=== PATIENT | male | born 1990 | race Caucasian/White ===

== ENCOUNTER 2019-04-20 00:27 | Emergency (ER) | payer OTHER ==
[~2019-04-20] VITALS: Ht 177.8 cm; Wt 117.3 kg
[2019-04-20 00:32] VITALS: Ht 177.8 cm; Wt 117.3 kg
[2019-04-20] MEDS ORDERED: KETOROLAC 30 MG INJ IM STA (01:49)
[2019-04-20] MEDS ORDERED: IBUP-1542 PO (02:11)
[2019-04-20 02:19] VITALS: BP 135/95; PULSE 94; RESP 18
--- NOTE | 2019-04-20 04:58 | ERD ---
ER Documentation Chief Complaint Chief Complaint PATIENT BIB SELF; CO RIGHT KNEE PAIN SINCE 1100 HPI 28-year-old male presented to ED for right knee pain. Patient states his pain is coming gone over the last few months. Patient cannot recall any aggravating factors. Patient states the pain is 10 out of 10. Patient states he had ankle surgery 3 years ago and had plates put in his ankle. The patient has a slight limp and states that that is normal for him. Patient denies any allergies to medications. Patient states he has not taken anything yet to try to alleviate the pain. The patient points to his right knee and states he feels a clicking sensation from time to time and feels like his knee gets stuck. ROS All systems reviewed and are negative except as per history of present illness. Medications Home Meds Active Scripts Ibuprofen* (Motrin*) 600 Mg Tab, 600 MG PO Q6, #30 TAB Prov:SAMUEL AUGUSTE PA-C 04/20/19 Allergies Allergies: Coded Allergies: No Known Allergy (Unverified , 09/21/14) PMhx/Soc Medical and Surgical Hx: pt denies Medical Hx, pt denies Surgical Hx History of Surgery: No Anesthesia Reaction: No Hx Neurological Disorder: No Hx Respiratory Disorders: No Hx Cardiac Disorders: No Hx Psychiatric Problems: No Hx Miscellaneous Medical Probl: No Hx Alcohol Use: No Hx Substance Use: No Hx Tobacco Use: Yes Smoking Status: Current every day smoker FmHx Family History: No diabetes, No coronary disease, No other Physical Exam Vitals Vital Signs Date Temp Pulse Resp B/P (MAP) Pulse Ox O2 O2 Flow FiO2 Time Delivery Rate 04/20/19 98.3 94 18 135/95 99 02:19 (108) 04/20/19 98.0 111 20 144/92 98 00:32 (109) Physical Exam Const: Moderate distress Resp: Clear to auscultation bilaterally Cardio: Regular rate and rhythm, no murmurs Abd: Soft, non tender, non distended. Normal bowel sounds Skin: No petechiae or rashes Back: No midline or flank tenderness Ext: No cyanosis, or edema, valgus valgus provokes no pain in the right lower extremity. Patient has positive Mathieu's test. Results 24 hrs Current Medications Medications Dose Sig/Juanita Start Time Status Last (Trade) Ordered Route PRN Stop Time Admin Dose Reason Admin Ketorolac 30 mg ONCE STAT 7/17/19 DC 04/20/19 Tromethamine IM 01:49 01:55 (Toradol) 04/20/19 01:51 Procedures/MDM Medications given in ER: Cyclobenzaprine Toradol Patient tolerated medication well with no adverse reactions. Patient reported improvement in pain. Medical decision making: Patient is a 28-year-old male presented to ED for right knee pain. Patient denies any traumatic injury. Obtaining history and the patient he has had surgery on his right ankle and has multiple screws and plates placed in that foot. Patient states ever since that surgery he is walked funny and has put more pressure on his right knee. Patient's physical exam showed a kneecap that is not in the normal position no pain to palpation. At this time I have low suspicion for knee dislocation. Valgus valgus provoked no pain at this time I have low suspicion for ACL, MCL, LCL injury. Since Mathieu's test was positive and patient states that he has clicking in the knee sometimes and it catches. The patient has good pulse motor sensation in the extremity and in no neuro vascular deficits .I advised the patient he may have a meniscus injury. I advised patient he needs to follow-up with Ortho regarding this matter. At this time I have low suspicion based off my physical exam for compartment syndrome, fracture, neurovascular injury. Upon reevaluation the patient appears to be doing much better with the Toradol injection in the cyclobenzaprine. The patient plans to follow-up with his primary care provider and get into an orthopedic regarding this visit this week. The patient had no further questions upon discharge in agreement to the treatment plan Prescription for home: Motrin I have discussed with the patient proper use and common side effects to expert with the medication . I advised the patient/family to speak with the pharmacist dispensing the medication to be advised of any potential drug interactions with other medication or supplements they may be taking. Discharge: At this time, patient is stable for discharge and outpatient management. I have instructed the patient to follow-up with his\her primary care physician in 1 to 2 days. I have discussed with the patient the possibility of needing to see a specialist for further work-up and imaging studies if symptoms persist. I have instructed the patient to promptly return to the ER for any new or worsening symptoms including increased pain, fever, nausea, vomiting, weakness or LOC. The patient and\or family expressed understanding of and agreement with this plan. All questions were answered. Home care instructions were provided. Disclaimer: Inadvertent spelling and grammatical errors are likely due to EHR\dictation software use and do not reflect on the overall quality of patient care. Also, please note that the electronic time recorded on the note does not necessarily reflect the actual time of the patient encounter. Departure Diagnosis: Primary Impression: Knee pain Chronicity: unspecified Laterality: right Qualified Codes: M25.561 - Pain in right knee Condition: Stable Patient Instructions: Knee Sprain Referrals: [facility] YOU HAVE RECEIVED A MEDICAL SCREENING EXAM AND THE RESULTS INDICATE THAT YOU DO NOT HAVE A CONDITION THAT REQUIRES URGENT TREATMENT IN THE EMERGENCY DEPARTMENT. FURTHER EVALUATION AND TREATMENT OF YOUR CONDITION CAN WAIT UNTIL YOU ARE SEEN IN YOUR DOCTORS OFFICE WITHIN THE NEXT 1-2 DAYS. IT IS YOUR RESPONSIBILITY TO MAKE AN APPOINTMENT FOR FOLOW-UP CARE. IF YOU HAVE A PRIMARY DOCTOR --you should call your primary doctor and schedule an appointment IF YOU DO NOT HAVE A PRIMARY DOCTOR YOU CAN CALL OUR PHYSICIAN REFERRAL HOTLINE AT IF YOU CAN NOT AFFORD TO SEE A PHYSICIAN YOU CAN CHOSE FROM THE FOLLOWING [facility] [address] [facility]. [facility] [address] [facility] [facility] [address] [facility] [facility] [address] [facility] [facility] [address] [facility]. [facility]. [address] [facility]. [facility] YOU HAVE RECEIVED A MEDICAL SCREENING EXAM AND THE RESULTS INDICATE THAT YOU DO NOT HAVE A CONDITION THAT REQUIRES URGENT TREATMENT IN THE EMERGENCY DEPARTMENT. FURTHER EVALUATION AND TREATMENT OF YOUR CONDITION CAN WAIT UNTIL YOU ARE SEEN IN YOUR DOCTORS OFFICE WITHIN THE NEXT 1-2 DAYS. IT IS YOUR RESPONSIBILITY TO MAKE AN APPOINTMENT FOR FOLOW-UP CARE. IF YOU HAVE A PRIMARY DOCTOR --you should call your primary doctor and schedule and appointment IF YOU DO NOT HAVE A PRIMARY DOCTOR YOU CAN CALL OUR PHYSICIAN REFERRAL HOTLINE AT . IF YOU CAN NOT AFFORD TO SEE A PHYSICIAN YOU CAN CHOSE FROM THE FOLLOWING REPLACED BY [facility] INSTITUTIONS: [facility] [address] [place] [address] [facility] [address] [place] [address] [facility] [address] [place] [address] [facility] 7 a.m.- 11 p.m. Every Day of the Week NO APPOINTMENT OR AUTHORIZATION NEEDED Additional Instructions: Call your primary care doctor TOMORROW for an appointment during the next 1-2 days.See the doctor sooner or return here if your condition worsens before your appointment time.SPECIALIST: YOU HAVE A MEDICAL CONDITION WHICH REQUIRES YOU TO SEE A SPECIALIST WITHIN THE NEXT 1-2 DAYS. PLEASE FOLLOW UP WITH YOUR PRIMARY PHYSICIAN FOR REFFERAL.IF YOU DO NOT HAVE A PRIMARY CARE PHYSICIAN AND/OR YOU CAN NOT AFFORD TO SEE A PHYSICIAN THE FOLLOWING RESOURCES HAVE BEEN SUPPLIED TO YOU. IT IS YOUR RESPONSIBILITY TO BE SEEN BY THE SPECIALIST SAMUEL AUGUSTE PA-C Apr 20, 2019 04:58
== END 2019-04-20 02:20 | disposition home or self-care (01) ==
LOC: FTE 00:27
DX: M25.561 Pain in right knee (principal); F17.210 Nicotine dependence, cigarettes, uncomplicated
CPT/HCPCS: 96372; J1885; Z7502